=== PATIENT | female | born 1960 | race American Indian/Alaskan Native ===

== ENCOUNTER 2020-03-18 06:08 | Day surgery (SDC) | payer BC, OTHER ==
[2020-03-12 14:01] LABS: Hematocrit 34.6 % (30.3-42.9); Hemoglobin 10.9 gm/dl (10.1-14.3); Mean Corpuscular HGB Conc 31 % (30-34); Mean Corpuscular Volume 79 fl (79-97); Platelet Count 283 K/mm3 (140-440); Red Blood Count 4.41 M/mm3 (3.65-5.03); Red Cell Distribution Width 16.5 % (13.2-15.2)
[2020-03-12 14:20] LABS: Blood Urea Nitrogen 14 mg/dL (7-17); Calcium 9.3 mg/dL (8.4-10.2); Hemolysis Index 14
[2020-03-12 14:22] LABS: BUN/Creatinine Ratio 20
[~2020-03-18 06:08] MED LIST: ceFAZolin/Water 2 GM/20 ML 2 GM/20 ML SYRINGE IV NR
[2020-03-18] MEDS ORDERED: BACTERIOSTATIC SODIUM CHLORIDE 0.9% 30 ML VIAL INFILTRATI ONE (06:39)
[2020-03-18] MEDS ORDERED: LACTATED RINGERS 1,000 ML ONE (06:39)
[2020-03-18] MEDS ORDERED: LACTATED RINGERS 1,000 ML IV SCH (07:30)
[2020-03-18] MEDS ORDERED: HYDROmorphone 1 MG/1 ML INJ IV PRN ×2 (07:32)
[2020-03-18] MEDS ORDERED: ONDANSETRON 4 MG/2 ML INJ IV PRN (07:32)
[2020-03-18] MEDS ORDERED: BUPIVACAINE/PF (0.25%) 2.5 MG/ML 30 ML VIAL INFILTRATI ONE ×2 (07:33→09:48)
[2020-03-18] MEDS ORDERED: METHYLENE BLUE 50 MG/10 ML AMP ONE (07:34)
[2020-03-18] MEDS ORDERED: LIDOCAINE (1%) 10 MG/1 ML VIAL 20 ML MDV ONE ×2 (07:34→07:38)
[2020-03-18] MEDS ORDERED: SODIUM CHLORIDE P/F VIAL 10 ML 10 ML ONE (07:34)
[2020-03-18] MEDS ORDERED: dexAMETHasone 20 MG/5 ML VIAL ONE (07:35)
[2020-03-18] MEDS ORDERED: LIDOCAINE MPF (2%) 20 MG/1 ML VIAL 5 ML ONE (07:35)
[2020-03-18] MEDS ORDERED: HYDROmorphone 1 MG/1 ML INJ ONE (07:35)
[2020-03-18] MEDS ORDERED: propofoL 200 MG/20 ML VIAL IV ONE (07:35)
[2020-03-18] MEDS ORDERED: KETOROLAC 30 MG/1 ML INJ ONE (07:35)
[2020-03-18] MEDS ORDERED: ONDANSETRON 4 MG/2 ML INJ ONE (07:35)
[2020-03-18] MEDS ORDERED: MIDAZOLAM 2 MG/2 ML INJ IV NR (08:00)
--- NOTE | 2020-03-18 08:38 | Anesthesia Day of Surgery ---
Anesthesia Day of Surgery - Day of Surgery Patient Examined: Yes Patient H&P Reviewed: Yes Patient is NPO: Yes
--- NOTE | 2020-03-18 08:39 | Anesthesia Consultation ---
Anesthesia Consult and Med Hx Date of service: 03/18/20 - Airway Anesthetic Teeth Evaluation: Caps, Crowns ROM Head & Neck: Adequate Mental/Hyoid Distance: Adequate Mallampati Class: Class II Intubation Access Assessment: Good - Pre-Operative Health Status ASA Pre-Surgery Classification: ASA2 Proposed Anesthetic Plan: General - Pulmonary Hx Smoking: No Hx Respiratory Symptoms: No (+2FS) - Cardiovascular System Hx Hypertension: Yes (+Cardiac clearance) Hx Heart Murmur: Yes (Gr II) - Central Nervous System Hx Psychiatric Problems: No - Gastrointestinal Hx Gastroesophageal Reflux Disease: Yes (Rare. Had Earl) - Hematic Hx Anemia: Yes Hx Sickle Cell Disease: No - Other Systems Hx Cancer: No Hx Obesity: Yes - Additional Comments Anesthesia Medical History Comments: Slow to wake up
[2020-03-18] MEDS ORDERED: ePHEDrine SULFATE 50 MG/1 ML INJ ONE (09:28)
[2020-03-18] MEDS ORDERED: WATER FOR IRRIG STERILE 1,500 ML BOTTLE IR ONE (09:47)
[2020-03-18] MEDS ORDERED: LIDOCAINE (1%) 10 MG/1 ML VIAL 20 ML MDV INFILTRATI ONE (09:48)
--- NOTE | 2020-03-18 10:39 | Short Stay Summary ---
Short Stay Documentation Date of service: 03/18/20 - History H&P: obtained from office - Allergies and Medications Current Medications: Allergies Sulfa (Sulfonamide Antibiotics) Allergy (Verified 03/12/20 15:05) Hives Home Medications Medication Instructions Recorded Confirmed Last Taken Type Ferrous Sulfate [Iron 325 MG] 325 mg PO DAILY 03/11/20 03/18/20 03/17/20 20:00 History Olmesartan/Hydrochlorothiazide 1 each PO DAILY 03/11/20 03/18/20 03/17/20 20:00 History [Olmesartan-Hctz 20-12.5 mg Tab] oxyCODONE /ACETAMINOPHEN [Percocet 1 tab PO Q6HR PRN #12 tablet 03/18/20 Unknown Rx 5/325] Active Medications Hydromorphone HCl (Hydromorphone 1 Mg/1 Ml Inj) 0.25 mg IV Q10MIN PRN PRN Reason: Pain, Moderate (4-6) Stop: 03/18/20 23:00 Hydromorphone HCl (Hydromorphone 1 Mg/1 Ml Inj) 0.5 mg IV Q10MIN PRN PRN Reason: Pain , Severe (7-10) Stop: 03/18/20 23:00 Cefazolin Sodium (Ancef/Sterile Water 2 Gm/20 Ml) 2 gm in 20 mls @ 80 mls/hr IV PREOP NR; Protocol Stop: 03/18/20 20:00 Lactated Ringer's (Lactated Ringers) 1,000 mls @ 100 mls/hr IV DIRECT MARJORIE Last Admin: 03/18/20 08:40 Dose: 100 mls/hr Documented by: Midazolam HCl (Midazolam 2 Mg/2 Ml Inj) 2 mg IV PREOP NR Stop: 03/18/20 23:59 Last Admin: 03/18/20 08:40 Dose: 2 mg Documented by: Ondansetron HCl (Ondansetron 4 Mg/2 Ml Inj) 4 mg IV ONCE PRN PRN Reason: Nausea And Vomiting Stop: 03/18/20 23:00 - Brief post op/procedure progress note Date of procedure: 03/18/20 Pre-op diagnosis: Left breast mass Post-op diagnosis: same Procedure: Left breast mass excisional biopsy Anesthesia: GETA Findings: Left breast mass with clip and wire present Surgeon: JEAN-PAUL PACHECO Estimated blood loss: minimal Pathology: list (left breast mass) Specimen disposition: to lab Condition: stable - Disposition Condition at discharge: Good Disposition: DC-01 TO HOME OR SELFCARE Short Stay Discharge Plan Activity: other (no heavy lifting) Diet: regular Wound: keep clean and dry (wear breast binder; no heavy lifting; may shower in 48 hours) Follow up with: JEAN-PAUL PACHECO MD [Staff Physician] - 7 Days Prescriptions: oxyCODONE /ACETAMINOPHEN [Percocet 5/325] 1 tab PO Q6HR PRN #12 tablet PRN Reason: Pain
[2020-03-18] MEDS ORDERED: PHENYLEPHRINE/NS 1,000 MCG/10 ML SYRINGE (OR USE) IV ONE (10:41)
--- NOTE | 2020-03-18 10:48 | Operative Report ---
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 Recommendations were to proceed with left breast mass excisional biopsy to rule out malignancy. She wished to proceed with the above procedure. Procedure in detail: The patient was taken to radiology for wire placement for localization known area of concern. Patient was then taken to the operating room. Gen. anesthesia was administered. Left breast was prepped and draped in the normal sterile operative fashion. The wire was identified. Timeout was performed. Attention was then taken towards the left breast. Ultrasound was used as well, clip present adjacent to wire. A periareolar breast incision was made around the 9:00 position with a 15 blade knife and dissection taken down to subcutaneous tissues. First began raising of the later flap with removal of the wire from the skin with dissection take down posteriorly past the wire, followed by raising of the inferior flap, medial flap and superoir flap with all flaps taken down posteriorly past the wire. The breast area of concern was appropriately removed posteriorly with the aid of the Bovie cautery. The wire was not encountered. Specimen was marked and then sent to pathology and radiology; radiograph specimen with wire and clip present. Breast cavity was irrigated and hemostasis was obtained. The breast cavity was then anesthesized with 1% lidocaine mixed with quarter percent marcaine. The posterior deep breast tissues were approximated and closed using interrupted 3-0 Vicryl. The subcutaneous tissues were approximated and closed using interrupted 3-0 Vicryl followed by closing of the skin with a running 4-0 Monocryl and skin affix. The patient tolerated surgery very well and she was awaken from anesthesia without any complication and transported to PACU in good condition.
--- NOTE | 2020-03-18 11:09 | Mammography Report ---
LEFT BREAST NEEDLE LOCALIZATION USING X-RAY GUIDANCE The procedure was explained to the patient and informed consent obtained. PROCEDURE: Using 3 mL of 1% buffered lidocaine, a 25 gauge needle and x-ray guidance, the retroareol ar left breast lesion was localized with standard needle/wire technique. There were no immediate comp lications. INTERPRETATION: 2 images made during the procedure demonstrate the needle to be properly positioned. IMPRESSION: Successful left breast lesion localization as described above. Thank you for allowing us to participate in the care of your patient. Signer Name: Viktor Oreilly Jr, MD Signed: 03/18/2020 11:05 AM Workstation Name: [id number]
--- NOTE | 2020-03-18 11:11 | Mammography Report ---
MAMMOGRAPHY SURGICAL SPECIMEN HISTORY: Post excisional biopsy COMPARISON: Needle localization performed earlier today. FINDINGS: A single specimen radiograph is presented demonstrating the specimen, localization wire and the targeted surgical clip in the retroareolar region of the left breast. IMPRESSION: Successful excisional biopsy. Please correlate with the formal report from pathology. Signer Name: Viktor Oreilly Jr, MD Signed: 03/18/2020 11:06 AM Workstation Name: [id number]
--- NOTE | 2020-03-18 11:46 | Post Anesthesia Evaluation ---
- Post Anesthesia Evaluation Patient Participated: Yes Airway Patent: Yes Stable Respiratory Function: Yes Nausea/Vomiting: No Temp > 96.8F: Yes Pain Manageable: Yes Adequeate Hydration: Yes Anesthesia Complications: No Block Receding Appropriately: Not Applicable Patient on Ventilator: No
[2020-03-18 12:02] VITALS: BP 120/63
== END 2020-03-18 12:55 | disposition home or self-care (01) ==
LOC: OR 06:08
PROVIDERS: ATTEND Surgery
DX: D24.2 Benign neoplasm of left breast (principal); I10 Essential (primary) hypertension; K21.9 Gastro-esophageal reflux disease without esophagitis; E66.9 Obesity, unspecified; D64.9 Anemia, unspecified; Z98.51 Tubal ligation status; Z86.19 Personal history of other infectious and parasitic diseases; Z79.899 Other long term (current) drug therapy; Z88.2 Allergy status to sulfonamides; Z98.49 Cataract extraction status, unspecified eye; Z80.8 Family history of malignant neoplasm of other organs or systems; Z68.37 Body mass index [BMI] 37.0-37.9, adult
CPT/HCPCS: 19125; 19281; 36415; 76098; 80048; 85027; 88307; J0690; J1100; J1170; J1885; J2250; J2370; J2405; J2704; J7120; Q9968; U0003

== ENCOUNTER 2020-09-05 15:19 | Outpatient (CLI) | payer BC ==
--- NOTE | 2020-09-05 17:58 | Mammography Report ---
DIGITAL DIAGNOSTIC MAMMOGRAM WITH CAD CONVENTIONAL, 09/05/2020 CLINICAL INFORMATION / INDICATION: Follow up benign left excisional biopsy TECHNIQUE: Digital left mammographic imaging was performed. This examination was interpreted with the benefit of Computer-aided Detection analysis. COMPARISON: Left post ultrasound-guided biopsy mammogram 01/15/2020, left wire localization mammograph ic images 03/18/2020 FINDINGS: Breast Density: The breasts are heterogeneously dense, which may obscure small masses. Mid breast biopsy clip is again seen. The retroareolar clip has been removed. Far medial density is l ess prominent. No other changes are seen. IMPRESSION: No mammographic evidence of malignancy. Follow up recommendation: Routine BI-RADS Category 2: Benign. A "normal" or negative report should not discourage follow up or biopsy of a clinically significant f inding. A written summary of these findings will be mailed to the patient. The patient will be entered into a mammography reporting system which will generate a reminder letter for the patient's next appointmen t at the appropriate interval. According to the [employer], yearly mammograms are recommended starting at age 40 and continuing as long as a woman is in good health. Breast MRI is recommended for women with an shira roximately 20-25% or greater lifetime risk of breast cancer, including women with a strong family his tory of breast or ovarian cancer and women who have been treated for Hodgkin's disease. Signer Name: Jeff Root MD Signed: 09/05/2020 5:54 PM Workstation Name: [id number]
== END 2020-09-05 15:20 | disposition home or self-care (01) ==
LOC: SPVWC 15:19
PROVIDERS: ATTEND Surgery
DX: N60.82 Other benign mammary dysplasias of left breast (principal)